=== PATIENT | male | born 1945 | race Caucasian/White ===

== ENCOUNTER 2020-09-12 16:52 | Emergency (ER) | payer MEDICARE, OTHER, SELFPAY ==
[2020-09-12 17:06] VITALS: BP 137/87; PULSE 82; RESP 16; TEMP 36.9
[2020-09-12 17:15] VITALS: O2SAT 98
--- NOTE | 2020-09-12 17:55 | ED.DENTAL ---
HPI - Dental/Oral General Chief complaint: Dental/Oral Stated complaint: Tooth Pain Time Seen by Provider: 09/12/20 17:48 Source: patient and RN notes reviewed Mode of arrival: ambulatory Limitations: no limitations History of Present Illness HPI Narrative: Patient presents today complaining of right upper dental pain since last night with facial swelling. Denies fever, shortness of breath, difficulty swallowing. He does not currently have a dentist. No recent antibiotic use. Currently rates pain 5/10 and has been taking Aleve and using peroxide without relief. MD Complaint: tooth pain Related Data Home Medications Medication Instructions Recorded Confirmed amlodipine 5 mg tablet 5 mg PO DAILY 01/23/19 09/10/20 aspirin 81 mg tablet,delayed 81 mg PO DAILY 01/23/19 09/10/20 release cholecalciferol (vitamin D3) 50 2,000 unit PO DAILY cap 01/23/19 09/10/20 mcg (2,000 unit) capsule lisinopril 40 mg tablet 40 mg PO DAILY 01/23/19 09/10/20 metoprolol tartrate 100 mg tablet 100 mg PO Q12H 01/23/19 09/10/20 atorvastatin 80 mg tablet 80 mg PO DAILY 02/18/19 09/10/20 furosemide [Lasix] 20 mg PO DAILY 09/12/20 09/12/20 nitroglycerin 0.4 mg SUBLINGUAL Q5-15M 09/12/20 09/12/20 Allergies Allergy/AdvReac Type Severity Reaction Status Date / Time No Known Allergies Allergy Verified 09/12/20 17:17 Review of Systems Review of Systems: Narrative: CONSTITUTIONAL: Denies body aches, fever, chills, or sweats. EYES: Denies visual changes, redness, or discharge. ENT: Denies rhinorrhea, congestion, sore throat, or otalgia.+ Right upper dental pain CARDIOVASCULAR: Denies chest pain, palpitations, or edema. RESPIRATORY: Denies cough or dyspnea. GASTROINTESTINAL: Denies abdominal pain, nausea, vomiting, or diarrhea. GENITOURINARY: Denies dysuria or hematuria. SKIN: Denies rash, itching, or wounds. MUSCULOSKELETAL: Denies back pain, joint pain, or myalgia. NEUROLOGIC: Denies headache, numbness, tingling, or weakness. PSYCH: Denies depression or anxiety. [facility] Past Medical History Medical History (Updated 09/12/20 @ 17:59 by Evelin Rojas, [employer], ) High cholesterol Hypertension Family History Family History Other Asthma Family history of cardiovascular disease Family history of liver disease Family history of malignant neoplasm of breast in first degree relative Social History Social History Smoking status: Never smoker Second hand tobacco smoke exposure: No Alcohol intake: current Gender identity (if verbalized by the patient): Male Comments At time of signature, I have reviewed and agree with nursing past medical, surgical, social and family history unless otherwise noted. Please see nursing chart for further information. There is no relevant family history pertinent to the presenting complaint Exam Narrative: Exam Narrative: GENERAL: Well-appearing, well-nourished, and in no acute distress. HEAD: Normocephalic, atraumatic. EYES: EOMI. No redness or drainage. Conjunctivae normal. ENT: Mucous membranes pink and moist. Throat normal. Uvula midline. Multiple missing teeth. Patient has pain in the right upper quadrant. Tooth #4 and 5 are painful with surrounding erythematous and edematous gumline. Mild swelling to the right upper jawline. NECK: Normal AROM. Supple. No lymphadenopathy. CHEST: No respiratory distress. Clear to auscultation. HEART: Regular rate and rhythm. No murmur appreciated. Normal peripheral pulses. EXTREMITIES: Normal range of motion. No edema. SKIN: Warm, dry, no rash. Capillary refill normal. Normal skin turgor. NEURO: No focal deficits. Alert and oriented x3. Gait steady. PSYCH: Normal affect. No signs of depression or anxiety. Course Vital Signs Vital signs: Vital Signs Temperature 98.4 F 09/12/20 17:06 Pulse Rate 82 09/12/20 17:06 Resp
== END 2020-09-12 18:02 | disposition home or self-care (01) ==
PROVIDERS: Emergency Provider Nurse Practitioner; PCP Physician Assistant
DX: K04.7 Periapical abscess without sinus (principal); E78.00 Pure hypercholesterolemia, unspecified; I10 Essential (primary) hypertension
CPT/HCPCS: 99213; G0463

== ENCOUNTER 2021-07-30 09:18 | Emergency (ER) | payer MEDICARE, OTHER, SELFPAY ==
--- NOTE | ~2021-07-30 | XR_ITS ---
XR abdomen/kub 1V DATE: 07/30/2021 09:48 INDICATION: Constipation TECHNIQUE: AP projection, 2 views COMPARISON: None FINDINGS: Sternal wire sutures are noted. Heart size is normal. The lower lung zones are clear. Nonspecific bowel gas pattern without evidence of obstruction. There is a moderate amount of fecal ma terial in the ascending colon, hepatic flexure and transverse colon. The psoas shadows are intact. No visceromegaly or significant abnormal calcification is noted. Mild dextro scoliosis of the lumbar spine. Multilevel degenerative disc disease of the lumbar spine. IMPRESSION: Nonspecific abdomen Reviewed, dictated and finalized at [facility]. Reviewed, dictated and finalized at [facility]. IMPRESSION: Nonspecific abdomen
[2021-07-30 09:21] VITALS: BP 145/105; PULSE 78; RESP 15; TEMP 35.9; O2SAT 99
[2021-07-30 09:35] VITALS: BP 157/82; PULSE 69; RESP 18; O2SAT 99
--- NOTE | 2021-07-30 11:20 | ED.ABDPAIN ---
HPI - Abdominal Pain General Chief Complaint: Abdominal Pain Stated Complaint: No BM, too much prune juice Time Seen by Provider: 07/30/21 09:31 History of Present Illness HPI narrative: Patient is a 75-year-old male who presents ER with abdominal cramping. Worsened since taking prune juice and attempt to have a bowel movement. Endorses constipation for several days despite 1 small bowel movement after taking some prune juice. No nausea or vomiting. No belching. No history of bowel obstruction or abdominal surgery. No fevers or chills or sweats. Related Data Home Medications Medication Instructions Recorded Confirmed amlodipine 5 mg tablet 5 mg PO DAILY 01/23/19 09/10/20 aspirin 81 mg tablet,delayed 81 mg PO DAILY 01/23/19 09/10/20 release cholecalciferol (vitamin D3) 50 2,000 unit PO DAILY cap 01/23/19 09/10/20 mcg (2,000 unit) capsule lisinopril 40 mg tablet 40 mg PO DAILY 01/23/19 09/10/20 metoprolol tartrate 100 mg tablet 100 mg PO Q12H 01/23/19 09/10/20 atorvastatin 80 mg tablet 80 mg PO DAILY 02/18/19 09/10/20 nitroglycerin 0.4 mg SUBLINGUAL Q5-15M 09/12/20 09/12/20 tamsulosin 0.4 mg PO DAILY 07/30/21 07/30/21 Allergies Allergy/AdvReac Type Severity Reaction Status Date / Time No Known Allergies Allergy Verified 07/30/21 09:29 Review of Systems Review of Systems: All systems reviewed & are unremarkable except as noted in HPI and below Constitutional: Constitutional: Denies chills, Denies fever(s) and Denies weakness Cardiovascular: Cardiovascular: Denies chest pain and Denies radiating jaw, neck or arm pain Gastrointestinal: Gastrointestinal: Reports abdominal pain, Reports bloating, Reports constipation, Denies nausea and Denies vomiting Genitourinary: Genitourinary: Denies dysuria and Denies urinary frequency [facility] Past Medical History Medical History (Updated 07/30/21 @ 11:22 by Vic Saavedra MD) High cholesterol Hypertension Family History Family History Other Asthma Family history of cardiovascular disease Family history of liver disease Family history of malignant neoplasm of breast in first degree relative Social History Social History Smoking status: Never smoker Second hand tobacco smoke exposure: No Alcohol intake: current Gender identity (if verbalized by the patient): Male Exam Narrative: GENERAL: Well-appearing, well-nourished, and in no acute distress. HEAD: Normocephalic, atraumatic. CHEST: Clear to auscultation. No respiratory distress. HEART: Regular rate and rhythm. Normal peripheral pulses. ABDOMEN: Soft, nontender, nondistended, normal active bowel sounds. EXTREMITIES: Normal range of motion. No edema. SKIN: Warm, dry, no rash. NEURO: Alert and oriented x3. PSYCH: Normal mood and affect. Course Course Emergency Course: Discharged with magnesium citrate and placed on daily MiraLAX. Vital Signs Vital signs: Vital Signs Temperature 96.6 F L 07/30/21 09:21 Pulse Rate 78 07/30/21 09:21 Respiratory Rate 15 07/30/21 09:21 Blood Pressure 145/105 H 07/30/21 09:21 Pulse Oximetry 99 07/30/21 09:21 Temperature 96.6 F L 07/30/21 09:21 Pulse Rate 69 07/30/21 09:35 Respiratory Rate 18 07/30/21 09:35 Blood Pressure 157/82 H 07/30/21 09:35 Pulse Oximetry 99 07/30/21 09:35 MDM - Abdominal Pain Imaging Data Radiologist's impression: ITS Impressions Abdomen X-Ray 07/30/21 09:57 IMPRESSION: Nonspecific abdomen Discharge Plan Discharge Clinical Impression: Constipation Patient Disposition: Home, Self-Care Condition: Stable Instructions: Constipation (ED) Additional Instructions: Return the ER if you cannot keep down food or water, you have severe abdominal pain, you have additional concerns. If you develop diarrhea discontinue the MiraLAX. Prescriptions: New
[2021-07-30] MEDS: MAGNESIUM CITRATE 300 ML BTL PO (11:38)
== END 2021-07-30 11:40 | disposition home or self-care (01) ==
PROVIDERS: Emergency Provider Emergency Medicine; PCP Physician Assistant
DX: K59.00 Constipation, unspecified (principal); Z79.82 Long term (current) use of aspirin; I10 Essential (primary) hypertension; E78.00 Pure hypercholesterolemia, unspecified
CPT/HCPCS: 74018; 99283; A9270

== ENCOUNTER 2021-08-04 11:26 | Inpatient (IN) | payer MEDICARE, OTHER, SELFPAY ==
[2021-08-04] VITALS (13 sets, daily range): BP systolic 118–159; BP diastolic 60–92; PULSE 70–86; RESP 18–20; TEMP 36.6–37.1; O2SAT 98–100; BMI 31.8
--- NOTE | ~2021-08-04 | CT_ITS ---
EXAMINATION: CT abdomen pelvis wo con DATE: 08/04/2021 14:55 INDICATION: Abdominal pain. Constipation. Inability to urinate. TECHNIQUE: Computed tomography (CT) of the abdomen and pelvis was performed without intravenous contr ast. Automated exposure control and iterative reconstruction technique were employed. The dose-length product was 622.54 mGy-cm. COMPARISON: None. FINDINGS: The visualized portions of the lung bases demonstrate mild atelectasis. No pleural effusion . The heart size is normal. No pericardial effusion. There is diffuse hepatic steatosis. The gallblad radhika, spleen, pancreas, and adrenal glands are normal. There is mild bilateral hydronephrosis and hydr oureter. There is no urolithiasis. The prostate is moderately enlarged. There is a Ruiz catheter in expected position. There is a left inguinal hernia containing fat. There is diverticulosis of the col on without evidence of diverticulitis. There are no dilated loops of bowel. The appendix is normal. T here are no pathologically enlarged lymph nodes. There is no free intraperitoneal fluid. There is sev ere lumbar spondylosis. IMPRESSION: 1. Mild bilateral hydronephrosis and hydroureter. 2. Moderately enlarged prostate. 3. Left inguinal hernia containing fat. 4. Diffuse hepatic steatosis. Reviewed, dictated and finalized at [facility].
--- NOTE | ~2021-08-04 | US_ITS ---
EXAMINATION: US renal BI DATE: 08/05/2021 13:34 INDICATION: Acute renal insufficiency. Urinary retention. TECHNIQUE: Multiple ultrasound grayscale images of the kidneys were obtained. COMPARISON: CT dated 08/04/2021 FINDINGS: The right kidney measures 12.8 x 5.1 x 6.5 cm. The left kidney measures 12.4 x 6.0 x 5.1 cm. The kidn eys demonstrate normal echogenicity. Prior mild bilateral hydronephrosis has resolved. No stones iden tified. The bladder is compressed around a Ruiz catheter which limits evaluation. Prostatomegaly.. IMPRESSION: 1. Normal kidneys without hydronephrosis. 2. Prostatomegaly. Reviewed, dictated and finalized at location A.
[2021-08-04 12:13] LABS: Basophils Percent Auto 0.4 % (0.2-1.2); Eosinophils Absolute Auto 0.1 K/mm3 (0-0.3); Hemoglobin 14.3 g/dL (14.0-18.0); Immature Granulocyte Absolute 0.08 K/mm3 (0.00-0.031); Immature Granulocyte Percent A 0.8 % (0-0.5); Lymphocytes Absolute Auto 1.41 K/mm3 (0.9-3.2); Mean Corpuscular HGB Conc 32.5 g/dl (32-36); Mean Corpuscular Hemoglobin 28.5 pg (26-34); Mean Corpuscular Volume 87.8 fl (80-100); Mean Platelet Volume 9.8 fl (7.4-10.4); Monocytes Absolute Auto 0.6 K/mm3 (0.1-0.6); Monocytes Percent Auto 6.7 % (2.6-8.5); Neutrophils Absolute Auto 7.2 K/mm3 (1.3-6.7); Neutrophils Percent Auto 76.1 % (45.5-73.1); Platelet Count Result 326 k/mm3 (150-375); Red Blood Count 5.01 M/mm3 (4.6-6.20); Red Cell Distribution Width 13.8 % (11.5-14.5); White Blood Count 9.4 K/mm3 (4.5-10.0)
[2021-08-04 12:15] LABS: Alanine Aminotransferase 42 U/L (6-50); Albumin Level 3.9 g/dL (3.5-5.1); Alkaline Phosphatase 117 U/L (38-126); Anion Gap 20 mmol/L (8-16); Aspartate Amino Transferase 18 U/L (17-59); Bilirubin,Total 0.5 mg/dL (0.2-1.3); Blood Urea Nitrogen 113 mg/dL (9-20); Calcium 7.5 mg/dL (8.4-10.2); Carbon Dioxide 10 mmol/L (22-30); Chloride 96 mmol/L (98-107); Glucose 88 mg/dL (65-110); Lipase 47 U/L (23-300); Potassium 7.9 mmol/L (3.4-5.0); Sodium 126 mmol/L (137-145)
[2021-08-04 12:17] LABS: Estimated CRCL calculation 3 ml/min; Estimated Glomerular Filt Rate 3
--- NOTE | 2021-08-04 12:17 | ECG_ITS ---
Measurements Intervals [place] Rate: 69 P: 71 OR: 236 QRS: 169 QRSD: 158 T: -10 QT: 445 QTc: 478 Interpretive Statements SINUS RHYTHM WITH FIRST DEGREE AV BLOCK RIGHT BUNDLE BRANCH BLOCK LEFT POSTERIOR FASCICULAR BLOCK BORDERLINE ST-T WAVE ABNORMALITY- INF/LAT LEADS ABNORMAL ECG Electronically Signed On 08-04-2021 13:18:32 CDT by Hardy Simpson D.O.
--- NOTE | 2021-08-04 13:18 | PC.NURSE ---
Note pt has over 1000cc in bladder per scanner. Preparing to straight cath patient.
--- NOTE | 2021-08-04 13:40 | PC.NURSE ---
Attempt to straight cath patient, per lamination technician unable to complete, #15F caude to bedside and pt straight cathed. Immediate return cloudy pink urine with some clots in it. Attached to paulino bag and clamped after 1000cc out. Pt c/o nausea.
[2021-08-04 13:53] LABS: Add Urine Microscopic? YES; Appearance Urine Slightly Cloudy (Clear); Bilirubin Urine Negative (Negative); Blood Urine 3+ (Negative); Color Urine Yellow (Yellow); Glucose Urine UA Negative (Negative); Ketones Urine Negative (Negative); Leukocyte Esterase Ur Negative LEU/UL (Negative); Nitrate Urine Negative (Negative); Protein Urine Negative (Negative); Urobilinogen Urine 0.2 mg/dL (<2.0); pH Urine 5.5 (5.0-9.0)
[2021-08-04] MEDS: SODIUM CHLORIDE 0.9% IV 1,000 ML 999 ML IV CONT (13:55)
[2021-08-04] MEDS: CALCIUM GLUCONATE 1,000 MG/10 ML VIAL 1000 MG IV PUSH (13:57)
[2021-08-04] MEDS: ALBUTEROL SULFATE NEB 2.5 MG/3 ML INH 5 MG INHALATION (14:00)
[2021-08-04 14:01] LABS: Mucus Urine Rare /lpf; RBC Urine >75 /hpf (0-2); WBC Urine 0-3 /hpf
[2021-08-04] MEDS: DEXTROSE 50% 25 GM/50 ML SYRINGE IV PUSH (14:05)
[2021-08-04] MEDS: INSULIN HUMAN REGULAR (*BKC) 100 UNITS/ML 10 UNITS IV PUSH (14:07)
[2021-08-04] MEDS: SODIUM BICARBONATE 8.4% 50 MEQ/50 ML SYRINGE IV PUSH (14:08)
--- NOTE | 2021-08-04 14:13 | ED.ABDPAIN ---
HPI - Abdominal Pain General Chief Complaint: Abdominal Pain Stated Complaint: trouble urinating, constipation Time Seen by Provider: 08/04/21 13:00 Source: patient Mode of arrival: ambulatory Limitations: no limitations History of Present Illness HPI narrative: This is a 75 year old male with history of hypertension who presents for evaluation of inability to urinate and abdominal pain. He states he has been having right lower abdominal pain since Saturday. He states his pain was intermittent and thought to be due to constipation. He states he has not had bowel movement in 1 week. Patient has not been able to urinary since his ER visit on Saturday. He has been having nausea and dry heaves. He denies fever or chills. He denies history urinary retention in the past. Related Data Home Medications Medication Instructions Recorded Confirmed amlodipine 5 mg tablet 5 mg PO DAILY 01/23/19 08/04/21 aspirin 81 mg tablet,delayed 81 mg PO DAILY 01/23/19 08/04/21 release cholecalciferol (vitamin D3) 50 2,000 unit PO DAILY cap 01/23/19 08/04/21 mcg (2,000 unit) capsule lisinopril 40 mg tablet 40 mg PO DAILY 01/23/19 08/04/21 metoprolol tartrate 100 mg tablet 100 mg PO Q12H 01/23/19 08/04/21 atorvastatin 80 mg tablet 80 mg PO DAILY 02/18/19 08/04/21 Allergies Allergy/AdvReac Type Severity Reaction Status Date / Time No Known Allergies Allergy Verified 08/04/21 13:07 Review of Systems Review of Systems: All systems reviewed & are unremarkable except as noted in HPI and below Constitutional: Constitutional: Denies chills, Reports fatigue and Denies fever(s) Cardiovascular: Cardiovascular: Denies chest pain Respiratory: Respiratory: Denies cough and Denies dyspnea Gastrointestinal: Gastrointestinal: Reports abdominal pain, Reports constipation, Denies diarrhea, Reports nausea and Denies vomiting Genitourinary: Genitourinary: Denies hematuria, Reports oliguria and Denies dysuria [facility] Past Medical History Medical History Benign prostatic hyperplasia Coronary artery disease Hyperlipidemia Hypertension Surgical History Surgical History History of coronary artery bypass graft (2002) Family History Family History Other Asthma Family history of cardiovascular disease Family history of liver disease Family history of malignant neoplasm of breast in first degree relative Social History Social History Social History: Surrogate decision-maker: CODE STATUS: Full code. Smoking status: Former smoker Second hand tobacco smoke exposure: No Alcohol intake: never Substance use: never Spiritual care concerns: No Exam Const: General: alert Orientation/consciousness: patient oriented x3 Eyes: EOM: EOMs intact bilaterally Chest: Chest palpation & inspection: normal inspection of the chest Resp: Effort & Inspection: normal respiratory effort and no retractions Auscultation: clear to auscultation bilaterally Cardio: Rate: regular rate Rhythm: regular rhythm Heart sounds: no murmurs GI: GI Palp: Yes Soft to palpation, No Tenderness to palpation present (GI) and No Guarding due to palpation present (GI) Auscultation: normal bowel sounds : General: Yes no CVA tenderness Skin: General skin exam: normal color Rashes: no rashes Neuro: General: patient oriented x3, moves all extremities and CN's II-XI intact bilaterally Psych: Mental Status: mental status grossly normal Affect: normal affect Course Reevaluation(s) Reevaluation #1: Patient presented with abdominal pain and urinary retention. He found to have FORTUNATO with hyperkalemia due to urinary obstruction. He was given IVF, insulin, bicarb, calcium and kayexalate for his hyperkalemia. Dr. Peterson with urolog
[2021-08-04] MEDS: SODIUM POLYSTYRENE SULFONONATE 15 GM/60 ML BTL 30 GM PO (14:36)
[2021-08-04 15:13] LABS: SARS-CoV-2 RNA PCR Negative
--- NOTE | 2021-08-04 15:15 | PM.IMHP ---
H&P: HPI History of Present Illness Date/Time: 08/04/21 15:15 Chief Complaint: Unable to urinate. Narrative: This is a pleasant 75-year-old male with benign prostatic hyperplasia, coronary artery disease, hypertension, and hyperlipidemia who presented to the ER from home with reports of not being able to urinate since Saturday. Over the last 6 months or so he has noticed some difficulties urinating, more specifically he has had problems starting his stream and he has noticed that his stream is less forceful. The symptoms have been much worse over the past 2 weeks to the point where he reportedly has not urinated much in the last 7 days. In fact he was seen in the emergency department over the weekend for what he thought was constipation at which time he was started on MiraLax after a KUB showed no significant constipation. The last several days he has noticed that his abdomen has become increasingly distended with nausea and weakness. Vital signs were stable on arrival to the ER today. Labs were remarkable for a BUN and creatinine of 113 and 17.40 respectively, sodium 126, potassium 7.9, chloride 96, carbon dioxide 10, anion gap 20. A Ruiz catheter was placed easily and according to the chart he has had 8375 mL out at the time of this dictation. His chemistries were repeated this evening with normalization of his potassium and improvement in his BUN and creatinine. At the time my evaluation the patient has no complaints and is feeling better. He was previously on tamsulosin but he stop taking that 6 months or so ago ?because it was not doing anything.? Review of Systems Review of Systems: Twelve systems were reviewed. No syncope or near syncope. No headache. No confusion. No balance issues. No recent cold or flu symptoms. No chest pain or shortness of breath. No vomiting. Except as documented, all other systems were reviewed and are negative. [facility] Past Medical History Medical History Benign prostatic hyperplasia Coronary artery disease Hyperlipidemia Hypertension Surgical History Surgical History (Updated 08/04/21 @ 22:19 by Flores Baez PA-C) History of bilateral cataract extraction History of coronary artery bypass graft x 2 (2002) Family History Family History Other Asthma Family history of cardiovascular disease Family history of liver disease Family history of malignant neoplasm of breast in first degree relative Social History Social History (Updated 08/04/21 @ 22:19 by Flores Baez PA-C) Social History: Surrogate decision-maker: Nikolai Saldivar (son) or Nazia Paul (daughter). CODE STATUS: Full code. Smoking status: Former smoker Second hand tobacco smoke exposure: No Alcohol intake: never Substance use: never Living arrangements: with family Spiritual care concerns: No Meds Home Medications and Allergies Home Medications Medication Instructions Recorded Confirmed Type amlodipine 5 mg tablet 5 mg PO DAILY 01/23/19 08/04/21 History aspirin 81 mg tablet,delayed 81 mg PO DAILY 01/23/19 08/04/21 History release cholecalciferol (vitamin D3) 50 2,000 unit PO DAILY cap 01/23/19 08/04/21 History mcg (2,000 unit) capsule lisinopril 40 mg tablet 40 mg PO DAILY 01/23/19 08/04/21 History metoprolol tartrate 100 mg tablet 100 mg PO Q12H 01/23/19 08/04/21 History atorvastatin 80 mg tablet 80 mg PO DAILY 02/18/19 08/04/21 History Allergies Allergy/AdvReac Type Severity Reaction Status Date / Time No Known Allergies Allergy Verified 08/04/21 13:07 Vital Signs Vital Signs - 24 hr 08/04/21 11:44 08/04/21 13:00 Temperature 98.2 F Pulse Rate 70 Respiratory Rate 18 18 Blood Pressure 141/67 H 141/71 H Pulse Oximetry 99 99 Exam Narrative: General: Well-developed male sitting in bed in no distress. He is in good spirits. Nontoxic in appearance. Weight: 8
--- NOTE | 2021-08-04 15:37 | PC.NURSE ---
food tray ordered
[2021-08-04 15:42] LABS: Glucose Point of Care 73 mg/dl (65-105)
--- NOTE | 2021-08-04 15:51 | PC.NURSE ---
Pt c/o pain at uretheral meatus and also c/o need to defecate. Ambulatory to bathroom for stool.
--- NOTE | 2021-08-04 16:11 | PC.NURSE ---
Pt to the bathroom to defecate a total of three times. Note blood at urinary meatus. Dr. Woodward at bedside speaking with patient. Pt reattached to ekg monitor tech. RT at bedside for gases. Food tray given to patient.
--- NOTE | 2021-08-04 16:13 | WPDURCON ---
Assessment and Plan Assessment and plan (1) Hyperkalemia: Code(s): E87.5 - Hyperkalemia Status: Acute (2) Acute kidney failure: Code(s): N17.9 - Acute kidney failure, unspecified Status: Acute (3) Urinary retention: Code(s): R33.9 - Retention of urine, unspecified Status: Acute Assessment and Plan: Urinary retention and acute kidney injury, at least in part, due to bladder outlet obstruction secondary to BPH Will start combination therapy for BPH ( tamsulosin and finasteride). Once a voiding trial as arranged he will need careful follow-up to make sure retention and renal failure as and recurring Urology Consult Note HPI Date Seen: 08/04/21 Primary Care Provider: Jose G Contreras PA-C Consult Narrative Narrative: Kwaku Saldivar is a 75 year old male, which never been seen in our office or by any other urologists, who presents to the ER with a one-week history of reports of inability to urinate and constipation. His daughter claims she has been after move for a week to present for evaluation because of his your complete lack of urination. The patient does reporting a six-month history of outlet obstructive voiding sensation and a sense of incomplete emptying. He has not ever saw to care for BPH or other urological issues. Seen in the ER Ruiz catheter was placed with ease and passed over 1 L of urine was drained. This was done prior to obtaining upper tract imaging. He was found have serum creatinine of 17 and potassium of 7.9. Review of Systems Cardiovascular: Cardiovascular: Denies chest pain, Denies lightheadedness, Denies palpitations and Denies dyspnea Respiratory: Respiratory: Denies dyspnea Gastrointestinal: Gastrointestinal: Denies diarrhea, Denies nausea and Denies vomiting Genitourinary: Genitourinary: Denies hematuria and Denies dysuria Endocrine: Endocrine: Denies palpitations PMF Past Medical History Medical History Benign prostatic hyperplasia Coronary artery disease Hyperlipidemia Hypertension Surgical History Surgical History History of coronary artery bypass graft (2002) Family History Family History Other Asthma Family history of cardiovascular disease Family history of liver disease Family history of malignant neoplasm of breast in first degree relative Social History Social History Social History: Surrogate decision-maker: CODE STATUS: Full code. Smoking status: Former smoker Second hand tobacco smoke exposure: No Alcohol intake: current Meds Home Medications and Allergies Home Medications Medication Instructions Recorded Confirmed Type amlodipine 5 mg tablet 5 mg PO DAILY 01/23/19 09/10/20 History aspirin 81 mg tablet,delayed 81 mg PO DAILY 01/23/19 09/10/20 History release cholecalciferol (vitamin D3) 50 2,000 unit PO DAILY cap 01/23/19 09/10/20 History mcg (2,000 unit) capsule lisinopril 40 mg tablet 40 mg PO DAILY 01/23/19 09/10/20 History metoprolol tartrate 100 mg tablet 100 mg PO Q12H 01/23/19 09/10/20 History atorvastatin 80 mg tablet 80 mg PO DAILY 02/18/19 09/10/20 History nitroglycerin 0.4 mg SUBLINGUAL Q5-15M 09/12/20 09/12/20 History polyethylene glycol 3350 [Miralax] 17 g PO DAILY #14 ea 07/30/21 Rx tamsulosin 0.4 mg PO DAILY 07/30/21 07/30/21 History Allergies Allergy/AdvReac Type Severity Reaction Status Date / Time No Known Allergies Allergy Verified 08/04/21 13:07 Vital Signs Vital Signs - 24 hr 08/04/21 11:44 08/04/21 13:00 08/04/21 13:17 Temperature 98.2 F Pulse Rate 70 73 Respiratory Rate 18 18 Blood Pressure 141/67 H 141/71 H 144/73 H Pulse Oximetry 99 99 99 08/04/21 13:32 08/04/21 14:18 08/04/21 14:41 Temperature Pulse Rate 85 84
[2021-08-04 16:16] LABS: Alveolar/Arterial O2 Gradient 22.1 mmHg; Base Excess ABG -10.8 mEq/l (+/-2.0); Carboxyhemoglobin 0.5 % THb (0-2.0); Fractional Inspired Oxygen 21 %; HCO3 ABG 12.6 mEq/l (22.0-26.0); Methemoglobin ABG 0.4 %THb (0-1.5); Oxygen Content ABG 20.9 %vol (16.0-22.0); Oxygen Saturation ABG 97.4 % (95.0-100.0); PO2 ABG 99.5 mmHg (80.0-100.0); PO2 FiO2 Ratio Arterial Blood 4.74 %; Reduced Hemoglobin 3.1 %THb (0-5.0); Total Hemoglobin 15.4 g/dL (12.0-18.0); pH ABG 7.348 (7.350-7.450)
[2021-08-04 16:17] LABS: Modified Allen's Test Pass; PCO2 ABG 23.5 mmHg (35.0-45.0); Site Drawn RIGHT RADIAL
[2021-08-04 16:18] LABS: Device ROOM AIR
[2021-08-04 17:09] LABS: Anion Gap 18 mmol/L (8-16); Blood Urea Nitrogen 99 mg/dL (9-20); Calcium 8.1 mg/dL (8.4-10.2); Carbon Dioxide 15 mmol/L (22-30); Chloride 106 mmol/L (98-107); Estimated CRCL calculation 5 ml/min; Estimated Glomerular Filt Rate 4; Glucose 89 mg/dL (65-110); Sodium 139 mmol/L (137-145)
--- NOTE | 2021-08-04 17:13 | PC.NURSE ---
Pt up bathroom to defecate again.
[2021-08-04] MEDS: LIDOCAINE HCL 2% GEL UROJET 10 ML PKG (17:27)
--- NOTE | 2021-08-04 17:57 | ADMGEN ---
This patient, Kwaku Saldivar, was admitted to Intensive Care Unit-9. Patient/family oriented to hospital policies and general routines including ID bracelet, bed and alarms, visiting hours, pain management, procedures, bathroom and other care routines, personal items, smoking policy, room service/diet, and visiting hours. Information on how to activate the Rapid Response Team has been discussed. Patient/Family are encouraged to report perceived risks to care and to ask questions if they do not understand what they are told or what they should do.
[2021-08-04] MEDS: SODIUM CHLORIDE 0.9% IV 1,000 ML 125 ML IV CONT (18:17)
--- NOTE | 2021-08-04 18:18 | PC.NURSE ---
Per GREY PERCHER, patient has had 4500 ml out of urine total since catheter placed.
--- NOTE | 2021-08-04 19:42 | PC.NURSE ---
Spoke with Flores LU and she states patient can be downgraded to IMU.
[2021-08-04] MEDS: TAMSULOSIN HCL 0.4 MG CAPSULE PO (20:11)
[2021-08-04 20:45] LABS: Anion Gap 11 mmol/L (8-16); Blood Urea Nitrogen 83 mg/dL (9-20); Calcium 7.6 mg/dL (8.4-10.2); Carbon Dioxide 19 mmol/L (22-30); Chloride 106 mmol/L (98-107); Estimated CRCL calculation 8 ml/min; Estimated Glomerular Filt Rate 7; Glucose 132 mg/dL (65-110); Potassium 4.8 mmol/L (3.4-5.0); Sodium 136 mmol/L (137-145)
[2021-08-04 21:11] LABS: Glucose Point of Care 149 mg/dl (65-105)
--- NOTE | 2021-08-04 21:25 | PC.NURSE ---
This patient, Kwaku Saldivar, was transferred to [ [id number]] on 08/04/21 at 2125. Personal belongings sent with patient. Report given to [ Ada MARIANO]. Appropriate documentation sent with patient.
--- NOTE | 2021-08-04 21:26 | PC.NURSE ---
This patient, Kwaku Saldivar, was received from ICU 9 on 08/04/21 at 2124. Patient oriented to unit policies and routines
[2021-08-04] MEDS: METOPROLOL TARTRATE 50 MG TAB 100 MG PO (23:02)
[2021-08-05] VITALS (13 sets, daily range): BP systolic 147–162; BP diastolic 58–68; PULSE 67–92; RESP 16–20; TEMP 36.6–37.2; O2SAT 96–100
[2021-08-05] MEDS: SODIUM CHLORIDE 0.9% IV 1,000 ML 125 ML IV CONT ×3 (02:13→20:54)
[2021-08-05 04:52] LABS: Basophils Percent Auto 0.5 % (0.2-1.2); Eosinophils Absolute Auto 0.2 K/mm3 (0-0.3); Hematocrit 39.1 % (42.0-52.0); Hemoglobin 13.4 g/dL (14.0-18.0); Immature Granulocyte Absolute 0.04 K/mm3 (0.00-0.031); Immature Granulocyte Percent A 0.5 % (0-0.5); Lymphocytes Absolute Auto 1.57 K/mm3 (0.9-3.2); Lymphocytes Percent Auto 20.7 % (18.3-44.2); Mean Corpuscular HGB Conc 34.3 g/dl (32-36); Mean Corpuscular Volume 84.6 fl (80-100); Mean Platelet Volume 9.1 fl (7.4-10.4); Monocytes Absolute Auto 0.8 K/mm3 (0.1-0.6); Monocytes Percent Auto 10.9 % (2.6-8.5); Neutrophils Percent Auto 65.4 % (45.5-73.1); Platelet Count Result 289 k/mm3 (150-375); Red Blood Count 4.62 M/mm3 (4.6-6.20); Red Cell Distribution Width 13.9 % (11.5-14.5); White Blood Count 7.6 K/mm3 (4.5-10.0)
[2021-08-05 05:13] LABS: Alanine Aminotransferase 36 U/L (6-50); Albumin Level 3.3 g/dL (3.5-5.1); Alkaline Phosphatase 110 U/L (38-126); Anion Gap 6 mmol/L (8-16); Aspartate Amino Transferase 19 U/L (17-59); Bilirubin,Total 0.5 mg/dL (0.2-1.3); Blood Urea Nitrogen 46 mg/dL (9-20); Calcium 7.7 mg/dL (8.4-10.2); Carbon Dioxide 20 mmol/L (22-30); Chloride 110 mmol/L (98-107); Estimated CRCL calculation 20 ml/min; Estimated Glomerular Filt Rate 20; Glucose 101 mg/dL (65-110); Magnesium 2.3 mg/dL (1.6-2.3); Phosphorus 3.6 mg/dL (2.5-4.5); Potassium 5.2 mmol/L (3.4-5.0); Sodium 136 mmol/L (137-145)
[2021-08-05] MEDS: CHOLECALCIFEROL 1,000 UNITS TABLET 2000 UNITS PO (08:15)
[2021-08-05] MEDS: amLODIPine BESYLATE 5 MG TABLET PO (08:15)
[2021-08-05] MEDS: METOPROLOL TARTRATE 50 MG TAB 100 MG PO ×2 (08:15→20:54)
[2021-08-05] MEDS: ATORVASTATIN 40 MG TABLET 80 MG PO (08:15)
[2021-08-05] MEDS: FINASTERIDE 5 MG TABLET PO (08:41)
[2021-08-05 09:15] LABS: Glucose Point of Care 97 mg/dl (65-105)
--- NOTE | 2021-08-05 10:35 | WPDUROPN2 ---
Progress Note: A&P Assessment and Plan (1) Obstruction, uropathy: Code(s): N13.9 - Obstructive and reflux uropathy, unspecified Status: Acute (2) Benign prostatic hyperplasia: Code(s): N40.0 - Benign prostatic hyperplasia without lower urinary tract symptoms Status: Acute (3) Acute hyperkalemia: Code(s): E87.5 - Hyperkalemia Status: Acute Additional Plan 1. Maintain Ruiz 2. Drink to thirst, ensure patient has access to water. 3. Patient understands he will require further outpatient work up in the office for bladder outlet obstruction surgery vs. need for chronic intermittent catheterization. Subjective Subjective Date/Time Seen: 08/05/21 10:35 Interval history: NAEO, electrolytes improving, patient understands need for catheter, drinking water to thirst. Exam Const: General: cooperative, healthy appearing, comfortable and no acute distress Chest: Chest palpation & inspection: normal inspection of the chest Resp: Effort & Inspection: normal respiratory effort, able to speak in complete sentences, no audible wheezes and no cough GI: Inspection: normal to inspection GI Palp: No abdominal tenderness Urinary Catheter: Urinary Catheter: patent and draining and urine clear Neuro: General: oriented to person, oriented to place, oriented to time and patient oriented x3 Psych: Appearance: grossly normal and well kempt Mental Status: mental status grossly normal Speech and movement: Normal speech and movement present Objective Data Vital Signs Vital Signs: Vital Signs - 24 hr 08/04/21 11:44 08/04/21 13:00 08/04/21 13:17 Temperature 98.2 F Pulse Rate 70 73 Respiratory Rate 18 18 Blood Pressure 141/67 H 141/71 H 144/73 H Pulse Oximetry 99 99 99 08/04/21 13:32 08/04/21 14:18 08/04/21 14:41 Temperature Pulse Rate 85 84 82 Respiratory Rate Blood Pressure 159/92 H Pulse Oximetry 99 100 100 08/04/21 15:43 08/04/21 18:00 08/04/21 20:00 Temperature 97.8 F 98 F Pulse Rate 77 77 Respiratory Rate 18 18 Blood Pressure 118/66 138/69 Pulse Oximetry 98 98 100 08/04/21 21:32 08/04/21 22:00 08/04/21 23:02 Temperature 97.9 F Pulse Rate 86 86 78 Respiratory Rate 20 Blood Pressure 149/60 H Pulse Oximetry 100 98 08/04/21 23:28 08/05/21 00:00 08/05/21 02:00 Temperature 98.7 F Pulse Rate 72 74 80 Respiratory Rate 20 Blood Pressure 147/61 H Pulse Oximetry 98 100 08/05/21 03:56 08/05/21 04:00 08/05/21 06:00 Temperature 97.8 F Pulse Rate 79 74 67 Respiratory Rate 20 Blood Pressure 147/58 H Pulse Oximetry 98 98 08/05/21 08:00 08/05/21 10:00 Temperature 98.6 F Pulse Rate 71 92 Respiratory Rate 18 Blood Pressure 150/60 H Pulse Oximetry 97 Intake/Output Intake/Output: Intake & Output 08/02/21 08/03/21 08/04/21 08/05/21 23:59 23:59 23:59 23:59 Intake Total 1290 1480 Output Total 8312 5028 Yixgalr -7927 -4338 Meds/Results Medications: Active Medications Generic Name Dose Route Start Last Admin Trade Name Freq PRN Reason Stop Dose Admin Amlodipine Besylate 5 mg 08/05/21 09:00 08/05/21 08:15 Amlodipine Besylate 5 Mg Tablet PO 5 mg DAILY OLENA Administration Atorvastatin Calcium 80 mg 08/05/21 09:00 08/05/21 08:15 Atorvastatin 40 Mg Tablet PO 80 mg DAILY OLENA Administration Finasteride 5 mg 08/05/21 09:00 08/05/21 08:41 Finasteride 5 Mg Tablet PO 5 mg QAM OLENA Administration Acetaminophen 1,000 mg in 100 mls @ 400 mls/hr 08/04/21 15:18 Ofirmev 1,000 Mg Ivpb IVPB 08/05/21 15:17 Q6H PRN Mild Pain (1-3) or Fever Sodium Chloride 1,000 mls @ 125 mls/hr 08/04/21 15:20 08/05/21 02:13 Normal Saline Iv IV CONT 125 mls/hr .Q8H OLENA Administration Metoprolol Tartrate 100 mg 08/04/21 22:35 08/05/21 08:15 Metoprolol Tartrate 50 Mg Tab PO 100 mg Q12HR OLENA Administration Ondansetron HCl 4 mg 08/04/21 15:18 Ondansetron Inj 4 Mg/2 Ml Vi
--- NOTE | 2021-08-05 11:46 | PM.CNNEP ---
Assessment and Plan Additional Plan 1. Kwaku has acute kidney injury. His BUN was 113 and his creatinine was 17.4. He had symptoms of BPH and then just yesterday symptoms of retention. He also had symptoms of uremia with his nausea. Ruiz catheter was placed knees had a tremendous amount of urine output and his creatinine has plummeted to its current level of 3.1. Most likely this is urinary retention and obstructive nephropathy. We do not have a baseline creatinine on the chart. We will see how much better the creatinine gets. It sounds like all the symptoms are somewhat acute so hopefully it will come down to a normal creatinine at baseline. 2. The patient has hyperkalemia. It was 7.9 on admission and he received Lokelma. Relief of the obstruction also has help the potassium. Today the potassium is 5.2. I will repeat a potassium this afternoon. 3. The patient has a low bicarbonate. His anion gap is normal. This is most likely due to the renal failure. Will repeat this tomorrow. 4. Sodium level is a little bit low. This is also most likely due to the renal failure. Will follow this along. 5. The patient has anemia. Hemoglobin is only mildly low. 6. Hypertension his blood pressure has been borderline high. We will see how it does with fluid removal from the relief of the obstruction. 7. Patient has BPH. He is on tamsulosin and Urology is following. History of Present Illness Reason for Consult Consult date: 08/05/21 Chief Complaint Chief complaint: Obstructive Uropathy, Acute Kidney Failure w/Hyper History of Present Illness Narrative: Kwaku is a very pleasant 75-year-old gentleman who has multiple medical problems including BPH, coronary disease status post bypass a few years ago, hypertension, hyperlipidemia. The patient was generally having problems with his prostate for the last few months. He has gotten up several times at night and each time he gets up he has to push to make urine. He did not mention any of this to his primary care doctor. He said he has not been sleeping well because of the frequent urinating but did not mention this either. He says in the last few days the urination has become more difficult and on the day of admission he was unable to urinate at all. He noted that his abdomen was quite distended as well. He developed some nausea lately. He came to the emergency room. He was found to have very high BUN creatinine and potassium. A Ruiz catheter was placed and he had a L of urine almost immediately and has had lots of urine output since then. Intake/output mentions 11L or more. Patient has not had any fevers or chills. He has not had any cold symptoms. He did not take any cold preparations. Is not on any new medications. He used to take a prostate medication over the counter but stopped that because it was not doing him any good. His blood pressure has been okay. He has not had any chest pain or shortness of breath. Review of Systems Constitutional: Constitutional: Reports no additional constitutional complaints Eyes: Eyes: Reports no additional eye complaints ENT: Reports system reviewed and no additional complaints, except as documented Cardiovascular: Cardiovascular: Reports no additional cardiovascular complaints Respiratory: Respiratory: Reports no additional respiratory complaints Gastrointestinal: Gastrointestinal: Reports no additional gastrointestinal complaints Genitourinary: Genitourinary: Reports no additional male genitourinary complaints Musculoskeletal: Musculoskeletal: Reports no additional musculoskeletal complaints Integumentary/Breasts: Skin/Breast: Reports system reviewed and no additional complaints, except as docu Neurologic: Reports system reviewed and no additional complaints, except as documented Psychiatric: Psychiatric: Reports no additional psychiatric complaints Endocrine: Endocrine: Reports no additional endocrine complaints [facility]
[2021-08-05 13:24] LABS: Glucose Point of Care 163 mg/dl (65-105)
[2021-08-05 16:48] LABS: Potassium 5.2 mmol/L (3.4-5.0)
[2021-08-05] MEDS: SODIUM ZIRCONIUM CYCLOSILICATE 10 GM POWD.PACK 5 GM PO (17:49)
--- NOTE | 2021-08-05 17:54 | PM.IMPN ---
Progress Note: A&P Assessment and Plan (1) Acute kidney failure: Code(s): N17.9 - Acute kidney failure, unspecified Status: Acute Assessment and Plan: Presumably due to urinary retention from bladder outlet obstruction; he does not appear dehydrated. He has not had labs done at this facility for several years but his creatinine was noted to be normal in 2019. Records requested from the [place] for comparison. Renal ultrasound has been ordered and is pending. Creatinine is already improving with Ruiz catheter placement. 08/05/2021 Interval history: patient with a urinary retention and presented emergency department with BUN and creatinine of 113 and 17.40 respectively, sodium 126, potassium 7.9, Ruiz was placed and 1 L of urine was drained was seen by urologist started the patient on Flomax and finasteride continued Ruiz, continue to have urine output, and has BUN and creatinine is improving and today BUN is 46 and creatinine is 3.1 compared to BUN of 113 and serum creatinine of 17.4, patient states is feeling much better denies any abdominal pain nausea or vomiting fever or chills, continue present management and reassess tomorrow further recommendation to follow. (2) Urinary retention: Code(s): R33.9 - Retention of urine, unspecified Status: Acute Assessment and Plan: Ruiz catheter yielded over 1000 mL upon initial insertion. Started on combination therapy with tamsulosin and finasteride per Dr. Woodward. (3) Hyperkalemia: Code(s): E87.5 - Hyperkalemia Status: Acute Assessment and Plan: Secondary to acute kidney failure. Potassium has normalized with appropriate treatment. (4) Hypertension: Code(s): I10 - Essential (primary) hypertension Status: Acute Assessment and Plan: Blood pressures were reviewed and they are stable. Monitor closely as lisinopril is on hold given acute kidney injury. (5) Benign prostatic hyperplasia: Code(s): N40.0 - Benign prostatic hyperplasia without lower urinary tract symptoms Status: Acute Assessment and Plan: Starting on combination therapy per Dr. Woodward as detailed above. (6) Acute hyperkalemia: Code(s): E87.5 - Hyperkalemia Status: Acute Subjective Date/time seen: 08/05/21 17:54 Chief Complaint: Unable to urinate. Narrative: This is a pleasant 75-year-old male with benign prostatic hyperplasia, coronary artery disease, hypertension, and hyperlipidemia who presented to the ER from home with reports of not being able to urinate since Saturday. Over the last 6 months or so he has noticed some difficulties urinating, more specifically he has had problems starting his stream and he has noticed that his stream is less forceful. The symptoms have been much worse over the past 2 weeks to the point where he reportedly has not urinated much in the last 7 days. In fact he was seen in the emergency department over the weekend for what he thought was constipation at which time he was started on MiraLax after a KUB showed no significant constipation. The last several days he has noticed that his abdomen has become increasingly distended with nausea and weakness. Vital signs were stable on arrival to the ER today. Labs were remarkable for a BUN and creatinine of 113 and 17.40 respectively, sodium 126, potassium 7.9, chloride 96, carbon dioxide 10, anion gap 20. A Ruiz catheter was placed easily and according to the chart he has had 8375 mL out at the time of this dictation. His chemistries were repeated this evening with normalization of his potassium and improvement in his BUN and creatinine. At the time my evaluation the patient has no complaints and is feeling better. He was previously on tamsulosin but he stop taking that 6 months or so ago ?because it was not doing anything.? 08/05/2021 Interval history: patient with a urinary retention and presented emergency department with BUN and creatinine of 113
[2021-08-05 18:09] LABS: Glucose Point of Care 91 mg/dl (65-105)
[2021-08-05] MEDS: TAMSULOSIN HCL 0.4 MG CAPSULE PO (20:53)
[2021-08-06] VITALS: BP 164/82; PULSE 72; PULSE 76; RESP 18; TEMP 36.3; O2SAT 97
[2021-08-06 04:00] VITALS: PULSE 73
[2021-08-06 05:17] VITALS: BP 135/54; PULSE 75; RESP 18; TEMP 36.8; O2SAT 97
[2021-08-06 06:12] LABS: Hematocrit 40.9 % (42.0-52.0); Hemoglobin 12.9 g/dL (14.0-18.0); Mean Corpuscular HGB Conc 31.5 g/dl (32-36); Mean Corpuscular Hemoglobin 28.2 pg (26-34); Mean Corpuscular Volume 89.5 fl (80-100); Mean Platelet Volume 9.2 fl (7.4-10.4); Platelet Count Result 248 k/mm3 (150-375); Red Blood Count 4.57 M/mm3 (4.6-6.20); Red Cell Distribution Width 14.1 % (11.5-14.5); White Blood Count 8.5 K/mm3 (4.5-10.0)
[2021-08-06 06:21] LABS: Hemoglobin A1C 6.2 % (<5.7)
[2021-08-06 06:30] LABS: Albumin Level 2.9 g/dL (3.5-5.1); Anion Gap 4 mmol/L (8-16); Blood Urea Nitrogen 14 mg/dL (9-20); Calcium 7.4 mg/dL (8.4-10.2); Carbon Dioxide 19 mmol/L (22-30); Chloride 110 mmol/L (98-107); Estimated CRCL calculation 59 ml/min; Estimated Glomerular Filt Rate > 60; Glucose 100 mg/dL (65-110); Phosphorus 2.2 mg/dL (2.5-4.5); Sodium 133 mmol/L (137-145)
[2021-08-06 07:57] VITALS: PULSE 88
[2021-08-06] MEDS: SODIUM CHLORIDE 0.9% IV 1,000 ML 125 ML IV CONT (07:57)
[2021-08-06] MEDS: METOPROLOL TARTRATE 50 MG TAB 100 MG PO (07:57)
[2021-08-06] MEDS: ATORVASTATIN 40 MG TABLET 80 MG PO (07:57)
[2021-08-06] MEDS: CHOLECALCIFEROL 1,000 UNITS TABLET 2000 UNITS PO (07:57)
[2021-08-06] MEDS: amLODIPine BESYLATE 5 MG TABLET PO (07:58)
[2021-08-06] MEDS: FINASTERIDE 5 MG TABLET PO (07:58)
[2021-08-06 08:00] VITALS: PULSE 77
--- NOTE | 2021-08-06 11:00 | WPDUROPN2 ---
Progress Note: A&P Assessment and Plan (1) Obstruction, uropathy: Code(s): N13.9 - Obstructive and reflux uropathy, unspecified Status: Acute (2) Benign prostatic hyperplasia: Code(s): N40.0 - Benign prostatic hyperplasia without lower urinary tract symptoms Status: Acute (3) Acute hyperkalemia: Code(s): E87.5 - Hyperkalemia Status: Acute Additional Plan 1. Maintain Ruiz at discharge, follow up with Dr. Woodward to arrange trial of void. 2. Continue flomax. will sign off, please call with questions or concerns. Subjective Subjective Date/Time Seen: 08/06/21 11:00 Interval history: NAEO, patient denies complaint, BMP demonstrates resolution of azotemia. Exam Narrative: NAD, A&Ox3 RRR eWOB S/NT/ND Ruiz draining clear yellow urine Extremities no c/c/e Neuro nonfocal Psych normal affect. Objective Data Vital Signs Vital Signs: Vital Signs - 24 hr 08/05/21 12:00 08/05/21 16:00 08/05/21 17:02 Temperature 98.5 F 98.1 F Pulse Rate 84 85 76 Respiratory Rate 16 16 Blood Pressure 156/68 H 157/68 H Pulse Oximetry 96 98 08/05/21 20:00 08/05/21 20:17 08/05/21 20:54 Temperature 99 F Pulse Rate 77 79 74 Respiratory Rate 18 Blood Pressure 162/67 H Pulse Oximetry 97 08/06/21 00:00 08/06/21 04:00 08/06/21 05:17 Temperature 97.3 F L 98.3 F Pulse Rate 72 73 75 Respiratory Rate 18 18 Blood Pressure 164/82 H 135/54 L Pulse Oximetry 97 97 08/06/21 07:57 08/06/21 08:00 Temperature Pulse Rate 88 77 Respiratory Rate Blood Pressure Pulse Oximetry Intake/Output Intake/Output: Intake & Output 08/03/21 08/04/21 08/05/21 08/06/21 23:59 23:59 23:59 23:59 Intake Total 1290 4820 2170 Output Total 2603 8361 9444 Balance -7030 8533 -412 Meds/Results Medications: Active Medications Generic Name Dose Route Start Last Admin Trade Name Freq PRN Reason Stop Dose Admin Amlodipine Besylate 5 mg 08/05/21 09:00 08/06/21 07:58 Amlodipine Besylate 5 Mg Tablet PO 5 mg DAILY OLENA Administration Atorvastatin Calcium 80 mg 08/05/21 09:00 08/06/21 07:57 Atorvastatin 40 Mg Tablet PO 80 mg DAILY OLENA Administration Finasteride 5 mg 08/05/21 09:00 08/06/21 07:58 Finasteride 5 Mg Tablet PO 5 mg QAM OLENA Administration Metoprolol Tartrate 100 mg 08/04/21 22:35 08/06/21 07:57 Metoprolol Tartrate 50 Mg Tab PO 100 mg Q12HR OLENA Administration Ondansetron HCl 4 mg 08/04/21 15:18 Ondansetron Inj 4 Mg/2 Ml Vial IV PUSH Q4H PRN Nausea Tamsulosin HCl 0.4 mg 08/04/21 21:00 08/05/21 20:53 Tamsulosin Hcl 0.4 Mg Capsule PO 0.4 mg BEDTIME OLENA Administration Vitamin D 2,000 units 08/05/21 09:00 08/06/21 07:57 Cholecalciferol 1,000 Units Tablet PO 2,000 units DAILY OLENA Administration Radiology Results: ITS Impressions Abdomen/Pelvis CT 08/04/21 14:59 IMPRESSION: 1. Mild bilateral hydronephrosis and hydroureter. 2. Moderately enlarged prostate. 3. Left inguinal hernia containing fat. 4. Diffuse hepatic steatosis. Renal Ultrasound 08/05/21 13:47 IMPRESSION: 1. Normal kidneys without hydronephrosis. 2. Prostatomegaly. Labs Labs: Laboratory Results - last 24 hr 08/05/21 08/05/21 08/05/21 11:28 16:33 16:35 WBC RBC Hgb Hct MCV MCH MCHC RDW Plt Count MPV Sodium Potassium 5.2 H Chloride Carbon Dioxide Anion Gap BUN Creatinine Estim Creat Clear Calc Estimated GFR Glucose POC Capillary Glucose 163 H 91 Hemoglobin A1c Calcium Phosphorus Albumin 08/06/21 08/06/21 08/06/21 05:49 05:49 05:49 WBC 8.5 RBC 4.57 L Hgb 12.9 L Hct 40.9 L MCV 89.5 D MCH 28.2 MCHC 31.5 L RDW 14.1 Plt Count 248 MPV 9.2 Sodium 133 L Potassium 5.0 Chloride 110 H Carbon Dioxide 19 L Anion Gap 4 L BUN 14 D Creatinine 1.00 D
[2021-08-06 12:00] VITALS: PULSE 63
--- NOTE | 2021-08-06 12:26 | PM.PNNEP ---
Progress Note: A&P Additional Plan 1. Kwaku has acute kidney injury. His BUN was 113 and his creatinine was 17.4. now his creatinine is normal. Looks like he has a full recovery from his obstructive uropathy. 2. The patient has hyperkalemia. Potassium okay at 5.0 now. 3. The patient has a low bicarbonate. His anion gap is normal. This is most likely due to the renal failure. CO2 is still low. Will give bicarbonate tabs. 4. Sodium level is a little bit low. This is also most likely due to the renal failure. Sodium level is stable. 5. The patient has anemia. Hemoglobin is only mildly low. 6. Hypertension his blood pressure has been borderline high. Blood pressure seems to have improved with relief of obstruction. 7. Patient has BPH. He is on tamsulosin and Urology is following. Subjective Date/time seen: 08/06/21 12:26 Interval history: Kwaku feels better today. He is eager for discharge. No chest pain or shortness of breath Review of Systems Cardiovascular: Cardiovascular: Reports no additional cardiovascular complaints Respiratory: Respiratory: Reports no additional respiratory complaints Gastrointestinal: Gastrointestinal: Reports no additional gastrointestinal complaints Genitourinary: Genitourinary: Reports no additional male genitourinary complaints Exam Narrative: WDWN in NAD skin no rash head ncat lungs clear cor reg no rub abd BS+ nontender and soft ext no edema. Objective Data Vital Signs Vital Signs: Vital Signs - 24 hr 08/05/21 16:00 08/05/21 17:02 08/05/21 20:00 Temperature 36.7 C Pulse Rate 85 76 77 Respiratory Rate 16 Blood Pressure 157/68 H Pulse Oximetry 98 08/05/21 20:17 08/05/21 20:54 08/06/21 00:00 Temperature 37.2 C 36.3 C L Pulse Rate 79 74 72 Respiratory Rate 18 18 Blood Pressure 162/67 H 164/82 H Pulse Oximetry 97 97 08/06/21 04:00 08/06/21 05:17 08/06/21 07:57 Temperature 36.8 C Pulse Rate 73 75 88 Respiratory Rate 18 Blood Pressure 135/54 L Pulse Oximetry 97 08/06/21 08:00 Temperature Pulse Rate 77 Respiratory Rate Blood Pressure Pulse Oximetry Intake/Output Intake/Output: Intake & Output 08/03/21 08/04/21 08/05/21 05/22/22 23:59 23:59 23:59 23:59 Intake Total 1290 0414 0450 Output Total 8387 1006 9483 Balance -7039 2758 -132 Meds/Results Medications: Active Medications Generic Name Dose Route Start Last Admin Trade Name Freq PRN Reason Stop Dose Admin Amlodipine Besylate 5 mg 08/05/21 09:00 08/06/21 07:58 Amlodipine Besylate 5 Mg Tablet PO 5 mg DAILY OLENA Administration Atorvastatin Calcium 80 mg 08/05/21 09:00 08/06/21 07:57 Atorvastatin 40 Mg Tablet PO 80 mg DAILY OLENA Administration Finasteride 5 mg 08/05/21 09:00 08/06/21 07:58 Finasteride 5 Mg Tablet PO 5 mg QAM OLENA Administration Metoprolol Tartrate 100 mg 08/04/21 22:35 08/06/21 07:57 Metoprolol Tartrate 50 Mg Tab PO 100 mg Q12HR OLENA Administration Ondansetron HCl 4 mg 08/04/21 15:18 Ondansetron Inj 4 Mg/2 Ml Vial IV PUSH Q4H PRN Nausea Tamsulosin HCl 0.4 mg 08/04/21 21:00 08/05/21 20:53 Tamsulosin Hcl 0.4 Mg Capsule PO 0.4 mg BEDTIME OLENA Administration Vitamin D 2,000 units 08/05/21 09:00 08/06/21 07:57 Cholecalciferol 1,000 Units Tablet PO 2,000 units DAILY OLENA Administration Radiology Results: ITS Impressions Abdomen/Pelvis CT 08/04/21 14:59 IMPRESSION: 1. Mild bilateral hydronephrosis and hydroureter. 2. Moderately enlarged prostate. 3. Left inguinal hernia containing fat. 4. Diffuse hepatic steatosis. Renal Ultrasound 08/05/21 13:47 IMPRESSION: 1. Normal kidneys without hydronephrosis. 2. Prostatomegaly. Labs Labs: Laboratory Results - last 24 hr 08/05/21 08/05/21 08/05/21 11:28 16:33 16:35 WBC RBC Hgb Hct MCV MCH MCHC RDW Plt Coun
--- NOTE | 2021-08-06 13:29 | PM.DS ---
DS: Admitting Diagnosis Discharge Date 08/06/2021 Admitting Diagnosis urinary retention DS: Discharge Diagnosis Discharge Diagnosis (1) Acute kidney failure: Code(s): N17.9 - Acute kidney failure, unspecified Status: Acute Assessment and Plan: Presumably due to urinary retention from bladder outlet obstruction; he does not appear dehydrated. He has not had labs done at this facility for several years but his creatinine was noted to be normal in 2019. Records requested from the [place] for comparison. Renal ultrasound has been ordered and is pending. Creatinine is already improving with Ruiz catheter placement. 08/05/2021 Interval history: patient with a urinary retention and presented emergency department with BUN and creatinine of 113 and 17.40 respectively, sodium 126, potassium 7.9, Ruiz was placed and 1 L of urine was drained was seen by urologist started the patient on Flomax and finasteride continued Ruiz, continue to have urine output, and has BUN and creatinine is improving and today BUN is 46 and creatinine is 3.1 compared to BUN of 113 and serum creatinine of 17.4, patient states is feeling much better denies any abdominal pain nausea or vomiting fever or chills, continue present management and reassess tomorrow further recommendation to follow. (2) Urinary retention: Code(s): R33.9 - Retention of urine, unspecified Status: Acute Assessment and Plan: Ruiz catheter yielded over 1000 mL upon initial insertion. Started on combination therapy with tamsulosin and finasteride per Dr. Woodward. (3) Hyperkalemia: Code(s): E87.5 - Hyperkalemia Status: Acute Assessment and Plan: Secondary to acute kidney failure. Potassium has normalized with appropriate treatment. (4) Hypertension: Code(s): I10 - Essential (primary) hypertension Status: Acute Assessment and Plan: Blood pressures were reviewed and they are stable. Monitor closely as lisinopril is on hold given acute kidney injury. (5) Benign prostatic hyperplasia: Code(s): N40.0 - Benign prostatic hyperplasia without lower urinary tract symptoms Status: Acute Assessment and Plan: Starting on combination therapy per Dr. Woodward as detailed above. (6) Acute hyperkalemia: Code(s): E87.5 - Hyperkalemia Status: Acute DS: Summary Hospital Course Reason for hospitalization: Chief Complaint: Unable to urinate. Narrative: This is a pleasant 75-year-old male with benign prostatic hyperplasia, coronary artery disease, hypertension, and hyperlipidemia who presented to the ER from home with reports of not being able to urinate since Saturday. Over the last 6 months or so he has noticed some difficulties urinating, more specifically he has had problems starting his stream and he has noticed that his stream is less forceful. The symptoms have been much worse over the past 2 weeks to the point where he reportedly has not urinated much in the last 7 days. In fact he was seen in the emergency department over the weekend for what he thought was constipation at which time he was started on MiraLax after a KUB showed no significant constipation. The last several days he has noticed that his abdomen has become increasingly distended with nausea and weakness. Vital signs were stable on arrival to the ER today. Labs were remarkable for a BUN and creatinine of 113 and 17.40 respectively, sodium 126, potassium 7.9, chloride 96, carbon dioxide 10, anion gap 20. A Ruiz catheter was placed easily and according to the chart he has had 8375 mL out at the time of this dictation. His chemistries were repeated this evening with normalization of his potassium and improvement in his BUN and creatinine. At the time my evaluation the patient has no complaints and is feeling better. He was previously on tamsulosin but he stop taking that 6 months or so ago ?because it was not doing anything.? Hospital Course:
== END 2021-08-06 14:15 | disposition home or self-care (01) | DRG 683 ==
LOC: ANHED 13:23 → ANHICU 18:03 → ANHIMU 22:10 → ANH3MED 08-06 13:22 → ANHICU 08-09 10:25 → ANHIMU 08-09 10:25
PROVIDERS: Emergency Medicine; Internal Medicine Nephrology; Physician Assistant; Admitting Provider Internal Medicine; Emergency Provider General Practice; PCP Physician Assistant; Visit Provider Family Medicine
DX: N17.9 Acute kidney failure, unspecified (principal); N13.8 Other obstructive and reflux uropathy; N40.1 Benign prostatic hyperplasia with lower urinary tract symptoms; R33.8 Other retention of urine; Z20.822 Contact with and (suspected) exposure to COVID-19; E87.5 Hyperkalemia; I10 Essential (primary) hypertension; I25.10 Atherosclerotic heart disease of native coronary artery without angina pectoris; E78.5 Hyperlipidemia, unspecified; Z79.82 Long term (current) use of aspirin; Z95.1 Presence of aortocoronary bypass graft; Z98.42 Cataract extraction status, left eye; Z98.41 Cataract extraction status, right eye; Z87.891 Personal history of nicotine dependence
CPT/HCPCS: 36415; 36600; 51701; 51702; 74176; 76775; 80048; 80053; 80069; 81001; 82375; 82805; 82948; 83036; 83050; 83690; 83735; 84100; 84132; 85025; 85027; 93005; 94640; 96361; 96374; 96375; 99285; A9270; C9803; J0610; J0692; J1815; J7030; U0003; U0005

== ENCOUNTER 2021-08-11 10:54 | Outpatient (CLI) | payer MEDICARE, OTHER, SELFPAY ==
[2021-08-11 12:12] LABS: Anion Gap 4 mmol/L (8-16); Blood Urea Nitrogen 17 mg/dL (9-20); Calcium 8.3 mg/dL (8.4-10.2); Carbon Dioxide 23 mmol/L (22-30); Chloride 103 mmol/L (98-107); Estimated Glomerular Filt Rate > 60; Glucose 93 mg/dL (65-110); Potassium 4.8 mmol/L (3.4-5.0); Sodium 130 mmol/L (137-145)
== END 2021-08-11 10:55 | disposition home or self-care (01) ==
LOC: ANHLAB 10:57
PROVIDERS: PCP Physician Assistant; Referring Provider Urology; Visit Provider Family Medicine
DX: E87.5 Hyperkalemia (principal)
CPT/HCPCS: 36415; 80048

== ENCOUNTER 2021-08-19 01:01 | Emergency (ER) | payer MEDICARE, OTHER, SELFPAY ==
--- NOTE | ~2021-08-19 | CT_ITS ---
EXAMINATION: CT abdomen pelvis wo con DATE: 08/19/2021 03:19 INDICATION: Left flank pain TECHNIQUE: Computed tomography (CT) of the abdomen and pelvis was performed without intravenous contr ast. The dose-length product (DLP) was 753.67 mGy-cm. Automated exposure control and iterative recons truction technique were employed. COMPARISON: 08/04/2021 FINDINGS: Minimal dependent atelectasis is present in the lung bases. The heart size is normal. The l iver, spleen, pancreas, gallbladder, and adrenal glands are normal. Previously described right hydron ephrosis has resolved. There is moderate left hydronephrosis with interval worsening continuing to th e level of the urinary bladder. No obstructing stone is identified. The bladder is decompressed by Fo brenda catheter. A large left inguinal hernia is present which now contains a portion of the nonobstruct ed sigmoid colon. No pathologically enlarged abdominal or pelvic lymph nodes are identified. There is no free intraperitoneal gas or evidence of bowel obstruction. There is calcified atherosclerosis of the aorta and many of the other arteries. There is severe lumbar spondylosis. IMPRESSION: 1. Resolved right hydronephrosis and worsening left hydroureteronephrosis. No obstructing stone ident ified however underlying mass is not excluded. 2. Large left inguinal hernia containing a portion of the nonobstructed sigmoid colon. Reviewed, dictated and finalized at location A. IMPRESSION: 1. Resolved right hydronephrosis and worsening left hydroureteronephrosis. No o bstructing stone identified however underlying mass is not excluded. 2. Large left inguinal hernia containing a portion of the nonobstructed sigmoid colon.
[2021-08-19 01:06] VITALS: BP 144/67; PULSE 89; RESP 18; TEMP 36.4; O2SAT 99
[2021-08-19 02:03] LABS: Basophils Absolute Auto 0.1 K/mm3 (0.0-0.1); Basophils Percent Auto 0.4 % (0.2-1.2); Eosinophils Absolute Auto 0.3 K/mm3 (0-0.3); Eosinophils Percent Auto 2.3 % (0-4.4); Hematocrit 42.5 % (42.0-52.0); Hemoglobin 14.1 g/dL (14.0-18.0); Immature Granulocyte Absolute 0.09 K/mm3 (0.00-0.031); Immature Granulocyte Percent A 0.8 % (0-0.5); Lymphocytes Absolute Auto 1.74 K/mm3 (0.9-3.2); Mean Corpuscular HGB Conc 33.2 g/dl (32-36); Mean Corpuscular Hemoglobin 28.3 pg (26-34); Mean Corpuscular Volume 85.3 fl (80-100); Mean Platelet Volume 9.1 fl (7.4-10.4); Monocytes Absolute Auto 0.8 K/mm3 (0.1-0.6); Neutrophils Absolute Auto 8.6 K/mm3 (1.3-6.7); Neutrophils Percent Auto 74.5 % (45.5-73.1); Platelet Count Result 291 k/mm3 (150-375); Red Blood Count 4.98 M/mm3 (4.6-6.20); Red Cell Distribution Width 13.4 % (11.5-14.5); White Blood Count 11.6 K/mm3 (4.5-10.0)
[2021-08-19 02:15] LABS: Lipase 38 U/L (23-300)
--- NOTE | 2021-08-19 02:16 | ED.GENADULT ---
HPI - General Adult General Chief complaint: Urogenital-Male Stated complaint: flank pain, vomiting Time Seen by Provider: 08/19/21 01:31 Source: patient Mode of arrival: ambulatory Limitations: no limitations History of Present Illness HPI narrative: This is a 75 year old male with history of enlarged prostate with urination retention, FORTUNATO who presents for evaluation of left flank pain. Patient was admitted to hospital on 08/04/21 with acute kidney injury due to urinary obstruction due to enlarged prostate. He was discharged home on 08/07/21 with paulino catheter in place. He states he developed left flank pain this evening. His pain has been constant. He states his pain was severe at onset, but it has improved. He states his paulino catheter is draining currently. He denies fever, chills, nasuea, vomiting or hematuria. He rates pain as 7/10. His pain is worsen with movement. His pain does not radiate. Related Data Home Medications Medication Instructions Recorded Confirmed amlodipine 5 mg tablet 5 mg PO DAILY 01/23/19 08/04/21 aspirin 81 mg tablet,delayed 81 mg PO DAILY 01/23/19 08/04/21 release (Adult Aspirin Regimen) cholecalciferol (vitamin D3) 50 2,000 unit PO DAILY 01/23/19 08/04/21 mcg (2,000 unit) capsule lisinopril 40 mg tablet 40 mg PO DAILY 01/23/19 08/04/21 metoprolol tartrate 100 mg tablet 100 mg PO Q12H 01/23/19 08/04/21 atorvastatin 80 mg tablet 80 mg PO DAILY 02/18/19 08/04/21 Allergies Allergy/AdvReac Type Severity Reaction Status Date / Time No Known Allergies Allergy Verified 08/04/21 13:07 Review of Systems Review of Systems: All systems reviewed & are unremarkable except as noted in HPI and below Constitutional: Constitutional: Denies chills and Denies fever(s) Respiratory: Respiratory: Denies chest congestion Gastrointestinal: Gastrointestinal: Denies abdominal pain, Denies heartburn, Denies diarrhea and Denies nausea Genitourinary: Genitourinary: Denies hematuria and Denies testicular pain Musculoskeletal: Musculoskeletal: Reports back pain Neurologic: Denies dizziness PMFSH Past Medical History Medical History Benign prostatic hyperplasia Coronary artery disease Hyperlipidemia Hypertension Surgical History Surgical History History of bilateral cataract extraction History of coronary artery bypass graft x 2 (2002) Family History Family History Other Asthma Family history of cardiovascular disease Family history of liver disease Family history of malignant neoplasm of breast in first degree relative Social History Social History Social History: Surrogate decision-maker: Nikolai Saldivar (son) or Nazia Paul (daughter). CODE STATUS: Full code. Smoking status: Former smoker Second hand tobacco smoke exposure: No Alcohol intake: never Substance use: never Spiritual care concerns: No Exam Narrative: GENERAL: Well-appearing, well-nourished, and in no acute distress. HEAD: Normocephalic, atraumatic EYES: PERRLA and EOMI, conjunctiva clear without discharge THROAT:Mucous membranes moist, Oropharynx normal without erythema, exudate, peritonsillar swelling or fluctuance NECK: Supple, without lymphadenopathy or mass RESPIRATORY: No respiratory distress, Airway patent, Respirations non-labored, Clear to auscultation without rales, rhonchi or wheeze HEART: Regular rate and rhythm. No murmur heard. Normal peripheral pulses. ABDOMEN: Soft, nontender, nondistended, normal active bowel sounds. No masses. No rebound or guarding, No organomegaly. EXTREMITIES: No edema, normal strength with full range of motion. SKIN: Warm, dry, normal color without rash NEURO: Alert and oriented x3. CN 2-12 grossly intact. No focal deficits. PSYCH: Normal mood an
[2021-08-19 02:52] LABS: Appearance Urine Clear (Clear); Bilirubin Urine Negative (Negative); Blood Urine 3+ (Negative); Color Urine Yellow (Yellow); Glucose Urine UA Negative (Negative); Ketones Urine Negative (Negative); Leukocyte Esterase Ur 1+ LEU/UL (Negative); Nitrate Urine Positive (Negative); Protein Urine 3+ mg/dL (Negative); Specific Grav Ur 1.025 (1.001-1.035); Urobilinogen Urine 0.2 mg/dL (<2.0)
[2021-08-19 03:02] LABS: Alanine Aminotransferase 29 U/L (6-50); Albumin Level 3.3 g/dL (3.5-5.1); Alkaline Phosphatase 139 U/L (38-126); Anion Gap 7 mmol/L (8-16); Aspartate Amino Transferase 30 U/L (17-59); Bilirubin,Total 0.6 mg/dL (0.2-1.3); Blood Urea Nitrogen 18 mg/dL (9-20); Carbon Dioxide 21 mmol/L (22-30); Chloride 103 mmol/L (98-107); Estimated CRCL calculation 63 ml/min; Estimated Glomerular Filt Rate > 60; Glucose 164 mg/dL (65-110); Sodium 131 mmol/L (137-145)
[2021-08-19 03:06] LABS: RBC Urine >75 /hpf (0-2); WBC Clumps Urine Present /HPF; WBC Urine >75 /hpf
[2021-08-19 03:07] LABS: Add Urine Microscopic? YES
[2021-08-19 05:35] VITALS: BP 105/60; PULSE 85; RESP 18; O2SAT 95
== END 2021-08-19 05:36 | disposition home or self-care (01) ==
PROVIDERS: Emergency Provider General Practice; PCP Physician Assistant
DX: N12 Tubulo-interstitial nephritis, not specified as acute or chronic (principal); K40.90 Unilateral inguinal hernia, without obstruction or gangrene, not specified as recurrent; E78.5 Hyperlipidemia, unspecified; I10 Essential (primary) hypertension; I25.10 Atherosclerotic heart disease of native coronary artery without angina pectoris; Z98.42 Cataract extraction status, left eye; Z98.41 Cataract extraction status, right eye; Z95.1 Presence of aortocoronary bypass graft; Z87.891 Personal history of nicotine dependence; Z79.82 Long term (current) use of aspirin
CPT/HCPCS: 36415; 74176; 80053; 81001; 83690; 85025; 87077; 87086; 87186; 96365; 96368; 99284; J0131; J0696

== ENCOUNTER 2021-10-05 01:18 | Day surgery (SDC) | payer MEDICARE, OTHER, SELFPAY ==
--- NOTE | 2021-09-27 15:00 | PC.NURSE ---
Report to the Outpatient Waiting Room, entrance under the green pavilion located off [facility], at time _1000 on date __10/05/21 . OR Time: 1200 . - You and your visitor will be asked a series of questions to screen for COVID 19 for your protection. - Only one visitor is allowed at this time. - The patient visitor is requested to leave or wait in car when not with patient. - A mask is required within the hospital. Patients may have clear liquids (water, carbonated beverages, clear teas, apple juice) until 3 hours prior to surgery with a maximum of 20 ounces. - No food from midnight until time of surgery - Infants may have breast milk until 4 hours before surgery, infant formula 6 hours prior to surgery. - Children will be allowed to drink immediately following surgery. If applicable, please bring a bottle or sippy cup to assist with drinking. Juice, water, soda, and popsicles are readily available. For infants on formula, please bring formula the day of surgery. Pacifiers are allowed. Take the following medications with a SIP of water the morning of surgery: __AMLODIPINE,METOPROLOL Medications to discontinue per physician ASPIRIN PER DR ENGLAND_. ALL VITAMINS AND SUPPLEMENTS 3 DAYS PRE OP Date to take last dose_10/01/21 Please no make-up, nail lao, hairspray, perfume, deodorant, or body powder the day of surgery. No jewelry (including any body piercings) or valuables the day of surgery, leave them at home. Please take a shower or bath the night before, or the morning of, surgery with an antibacterial soap. Wear comfortable, loose fitting clothing. Children are encouraged to wear pajamas. - Jewelry must be removed prior to entering the operating room. Rings and piercings that are not removed may be cut off. - The hospital will not accept responsibility for valuables. - Please leave all valuables, including medications, at home the day of surgery. If you are going home after surgery, a licensed hazardous materials tanker driver must drive you home. - NO public transportation without another adult. - We recommend that an adult stay with you for 24 hours following discharge. - We also recommend that you do not drive, make important decision, drink alcoholic beverages, or take any drugs that were not prescribed by your health care provider for at least 24 hours after your discharge time. For Pediatric surgeries, we recommend two adults accompany the child home (only one inside the building at this time). Follow any additional instructions given to you from your surgeon. If you or anyone in your household have experienced Covid symptoms in the past week, please notify your surgeon or the nurse liaison at the phone number below for possible testing. Telephone instructions given to ___PATIENT and asked if any additional questions and then verbalized understanding. Patient advised to call surgeon office or pre surgery nurse liaison [phone] if any additional questions.
[2021-09-27 15:07] VITALS: BMI 29.5
--- NOTE | 2021-10-02 07:11 | PM.IMHP ---
H&P: HPI History of Present Illness Date/Time: 10/02/21 07:11 Chief Complaint: Urinary retention Narrative: 75-year-old gentleman who I became from a with any presented to the emergency department with profound urinary retention and a serum creatinine of 17. Obviously, at that time, urethral catheter was placed in his renal function improved dramatically. 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 We have discussed therapeutic options including and chronic indwelling catheter, intermittent catheterization and suprapubic catheters. he is aware that the planned a TURP procedure today likely will not lead to spontaneously voiding but will assist with intermittent self catheterization. He is aware the risk of this procedure including, but not limited to, adverse cardiopulmonary events, persistent urinary retention and hematuria. Review of Systems Cardiovascular: Cardiovascular: Denies chest pain, Denies lightheadedness, Denies palpitations and Denies dyspnea Respiratory: Respiratory: Denies dyspnea Gastrointestinal: Gastrointestinal: Denies diarrhea, Denies nausea and Denies vomiting Genitourinary: Genitourinary: Denies hematuria and Denies dysuria Endocrine: Endocrine: Denies palpitations [facility] Past Medical History Medical History Benign prostatic hyperplasia Coronary artery disease Hyperlipidemia Hypertension Surgical History Surgical History History of bilateral cataract extraction History of coronary artery bypass graft x 2 (2002) Family History Family History Other Asthma Family history of cardiovascular disease Family history of liver disease Family history of malignant neoplasm of breast in first degree relative Social History Social History Social History: Surrogate decision-maker: Nikolai Saldivar (son) or Nazia Paul (daughter). CODE STATUS: Full code. Smoking packs per day: 0.5 Smoking cigarettes per day: 10.0 Years smoked: 39 Smoking pack-years: 19.50 Smoking status: Former smoker Tobacco type: cigarettes Second hand tobacco smoke exposure: No Smoking end date: 03/18/02 Alcohol intake: never Substance use: never Living arrangements: with family Spiritual care concerns: No Meds Home Medications and Allergies Home Medications Medication Instructions Recorded Confirmed Type amlodipine 5 mg tablet 5 mg PO DAILY 01/23/19 09/27/21 History aspirin 81 mg tablet,delayed 81 mg PO DAILY 01/23/19 09/27/21 History release (Adult Aspirin Regimen) cholecalciferol (vitamin D3) 50 2,000 unit PO DAILY 01/23/19 09/27/21 History mcg (2,000 unit) capsule lisinopril 40 mg tablet 40 mg PO DAILY 01/23/19 09/27/21 History metoprolol tartrate 100 mg tablet 100 mg PO Q12H 01/23/19 09/27/21 History atorvastatin 80 mg tablet 80 mg PO DAILY 02/18/19 09/27/21 History finasteride 5 mg tablet (Proscar) 5 mg PO QAM #30 tabs 08/06/21 09/27/21 Rx tamsulosin 0.4 mg capsule 0.4 mg PO BEDTIME #30 caps 08/06/21 09/27/21 Rx Allergies Allergy/AdvReac Type Severity Reaction Status Date / Time No Known Allergies Allergy Verified 09/27/21 14:49 Exam Const: General: no acute distress Resp: Effort & Inspection: normal respiratory effort GI: Inspection: non-distended GI Palp: No abdominal tenderness and No Guarding due to palpation present (GI) Auscultation: normal bowel sounds Assessment and Plan Assessment and plan (1) BPH loc w urin obs/LUTS: Code(s): N40.1 - Benign prostatic hyperplasia with lower urinary tract symptoms Status: Acute Assessment and Plan: TURP
[2021-10-05] VITALS (13 sets, daily range): BP systolic 100–142; BP diastolic 42–71; PULSE 59–73; RESP 10–18; TEMP 36.1–36.7; O2SAT 93–97
--- NOTE | 2021-10-05 06:41 | WPDHPUPDATE1 ---
History and Physical Update Update Date/Time: 10/05/21 06:41 History and Physical has been reviewed, including an updated exam of the patient. There are NO changes in the patient's condition. Risks, benefits, and alternatives have been discussed and questions answered. Patient agrees to proceed with procedure.
[2021-10-05] MEDS: LACTATED RINGERS 1,000 ML 30 ML IV CONT ×2 (10:13→12:03)
--- NOTE | 2021-10-05 10:32 | WPDANESEPPF ---
Anes - Initial Pre Proc Eval Procedure: Operation Date: 10/05/21 11:45 Proposed Procedures p Trans Urethral Resection Prostate - Rodri Woodward MD Date/Time: 10/05/21 10:32 Surgeon: Rodri Woodward MD Pre Op Diagnosis: Urinary Retention Patient Data Age: 75 Gender: M Height: 1.66 m Weight: 81.15 kg Last Vital Signs Temp 36.7 C 10/05/21 09:54 Pulse 73 10/05/21 09:54 Resp 18 10/05/21 09:54 BP 132/65 10/05/21 09:54 Pulse Ox 97 10/05/21 09:54 O2 Del Method Room Air 10/05/21 09:54 Allergies Allergy/AdvReac Type Severity Reaction Status Date / Time No Known Allergies Allergy Verified 10/05/21 10:20 Home Medications Medication Instructions Recorded Confirmed Type amlodipine 5 mg tablet 5 mg PO DAILY 01/23/19 10/05/21 History aspirin 81 mg tablet,delayed 81 mg PO DAILY 01/23/19 10/05/21 History release (Adult Aspirin Regimen) cholecalciferol (vitamin D3) 50 2,000 unit PO DAILY 01/23/19 10/05/21 History mcg (2,000 unit) capsule lisinopril 40 mg tablet 40 mg PO DAILY 01/23/19 10/05/21 History metoprolol tartrate 100 mg tablet 100 mg PO Q12H 01/23/19 10/05/21 History atorvastatin 80 mg tablet 80 mg PO DAILY 02/18/19 10/05/21 History finasteride 5 mg tablet (Proscar) 5 mg PO QAM #30 tabs 08/06/21 10/05/21 Rx tamsulosin 0.4 mg capsule 0.4 mg PO BEDTIME #30 caps 08/06/21 10/05/21 Rx Patient hx anesthesia problems: none Family hx anesthesia problems: none Results Review: All pre-operative results and documents have been reviewed as part of the pre-operative evaluation. [facility] Past Medical History Medical History Benign prostatic hyperplasia Coronary artery disease Hyperlipidemia Hypertension Surgical History Surgical History History of bilateral cataract extraction History of coronary artery bypass graft x 2 (2002) Family History Family History Other Asthma Family history of cardiovascular disease Family history of liver disease Family history of malignant neoplasm of breast in first degree relative Social History Social History Social History: Surrogate decision-maker: Nikolai Saldivar (son) or Nazia Paul (daughter). CODE STATUS: Full code. Smoking packs per day: 0.5 Smoking cigarettes per day: 10.0 Years smoked: 39 Smoking pack-years: 19.50 Smoking status: Former smoker Tobacco type: cigarettes Second hand tobacco smoke exposure: No Smoking end date: 03/18/02 Alcohol intake: never Substance use: never Living arrangements: with family Spiritual care concerns: No Anes - Eval Final PreProcedure Day of Procedure 10/05/21 10:32 Patient weight: overweight Heart: regular rate and rhythm Lungs: clear to auscultation Airway: Mallampati scale class II Neurological: alert and oriented Last oral intake: >/= 8 hours ASA classification: III Emergent: no Anesthetic plan: proceed Anesthesia type and monitoring: general LMA and standard monitoring Results Review: All pre-operative results and documents have been reviewed as part of the pre-operative evaluation. Informed Consent: The patient's anesthetic plan and its attendant risks and benefits were discussed with the patient/family/POA. Questions were solicited and answers provided to the satisfaction of the patient/family/POA.
--- NOTE | 2021-10-05 12:08 | W.PM.PROC2 ---
Procedure Note - Detailed Date of Procedure 10/05/21 Pre-op Diagnosis Urinary retention due to BPH Post-op Diagnosis Same Procedure Performed TURP Surgeon Rodri Woodward MD Description of Procedure The patient was brought to the operative suite where he is prepped and draped in routine sterile fashion while in the dorsal lithotomy position after the uneventful induction of a general LMA anesthetic. A 29 [place] resectoscope sheath was placed into his bladder. He had no urethral strictures. The patient had bilobar hyperplasia with a small median lobe. The bladder itself was endoscopically normal, showing no mucosal hyperemia, intravesical neoplasm or foreign bodies. There was a single, orthotopic ureteral orifice bilaterally. These orifices were identified and preserved throughout the remainder of the procedure. Attention was first turned to resection of the median lobe. This resection was undertaken from the bladder neck to the verumontanum and carried out until the transverse fibers of the bladder neck were identified. The left lateral lobe was then resected starting at the 6 o'clock position, working counter clockwise to the 12 o'clock position. Again, resection was carried out from the bladder neck to the verumontanum until the capsular fibers of the prostate were identified. The right lateral lobe was resected in a similar fashion starting at the 6 o'clock position working clockwise to the 12 o'clock position and carried out until the capsular fibers of the prostate were identified. Apical tissue was then circumferentially resected. All chips were evacuated from the bladder using an Inflection evacuator. Hemostasis was obtained with electric cautery. The ureteral orifices were again inspected and found to be without injury. Estimated blood loss throughout this procedure was 75cc. The patient was taken to recovery room having tolerated this well. Estimated Blood Loss -20.0 Drains Yes Pathology Yes Complications No immediate complications Condition Stable
--- NOTE | 2021-10-05 12:13 | SUR.PHASEI ---
1207- oral airway removed
[2021-10-05] MEDS: fentaNYL CITRATE INJ (*CRX) 100 MCG/2 ML VIAL 25 MCG IV PUSH ×3 (12:19→12:25)
[2021-10-05] MEDS: ONDANSETRON INJ 4 MG/2 ML VIAL IV PUSH ×2 (12:42→14:03)
--- NOTE | 2021-10-05 13:15 | ADMGEN ---
This patient, Kwaku Saldivar, was admitted to Medical Room 244-. Patient/family oriented to hospital policies and general routines including ID bracelet, bed and alarms, visiting hours, pain management, procedures, bathroom and other care routines, personal items, smoking policy, room service/diet, and visiting hours. Information on how to activate the Rapid Response Team has been discussed. Patient/Family are encouraged to report perceived risks to care and to ask questions if they do not understand what they are told or what they should do.
[2021-10-05] MEDS: DEXTROSE 5%/LACTATED RINGERS 1,000 ML 125 ML IV CONT (14:03)
[2021-10-05] MEDS: CALCIUM CARBONATE (TUMS) 500 MG (200 MG ELEMENTAL) PO (14:39)
[2021-10-05 16:27] LABS: Glucose Point of Care 191 mg/dl (65-105)
[2021-10-05] MEDS: DOCUSATE SODIUM 100 MG CAPSULE PO (16:45)
[2021-10-05] MEDS: METOPROLOL TARTRATE 50 MG TAB 100 MG PO (21:59)
[2021-10-05] MEDS: TAMSULOSIN HCL 0.4 MG CAPSULE PO (22:00)
[2021-10-05 22:15] LABS: Glucose Point of Care 218 mg/dl (65-105)
[2021-10-06 03:25] VITALS: BP 121/57; PULSE 65; RESP 17; TEMP 36.9; O2SAT 97
[2021-10-06 05:26] LABS: Hematocrit 38.9 % (42.0-52.0); Hemoglobin 13.2 g/dL (14.0-18.0)
[2021-10-06 05:35] LABS: Anion Gap 6 mmol/L (8-16); Blood Urea Nitrogen 21 mg/dL (9-20); Calcium 8.6 mg/dL (8.4-10.2); Carbon Dioxide 23 mmol/L (22-30); Chloride 102 mmol/L (98-107); Estimated CRCL calculation 52 ml/min; Estimated Glomerular Filt Rate > 60; Glucose 99 mg/dL (65-110); Potassium 4.3 mmol/L (3.4-5.0); Sodium 131 mmol/L (137-145)
[2021-10-06 07:43] LABS: Glucose Point of Care 117 mg/dl (65-105)
--- NOTE | 2021-10-06 07:45 | WPDUROPN2 ---
Progress Note: A&P Assessment and Plan (1) BPH loc w urin obs/LUTS: Code(s): N40.1 - Benign prostatic hyperplasia with lower urinary tract symptoms Status: Acute Assessment and Plan: Doing well POD #1 TURP Stop CBI this morning Voiding trial later today if urine remains clear off CBI Subjective Subjective Date/Time Seen: 10/06/21 07:45 Comfortable, nausea last night has resolved. No other complaints. Review of Systems Cardiovascular: Cardiovascular: Denies chest pain, Denies lightheadedness, Denies palpitations and Denies dyspnea Respiratory: Respiratory: Denies dyspnea Gastrointestinal: Gastrointestinal: Denies diarrhea, Denies nausea and Denies vomiting Genitourinary: Genitourinary: Denies hematuria and Denies dysuria Endocrine: Endocrine: Denies palpitations Exam Const: General: no acute distress Resp: Effort & Inspection: normal respiratory effort GI: Inspection: non-distended GI Palp: No abdominal tenderness and No Guarding due to palpation present (GI) Auscultation: normal bowel sounds Objective Data Vital Signs Vital Signs: Vital Signs - 24 hr 10/05/21 09:54 10/05/21 12:03 10/05/21 12:18 Temperature 98.1 F 97 F L Pulse Rate 73 69 67 Respiratory Rate 18 10 L 18 Blood Pressure 132/65 121/58 L 142/68 H Pulse Oximetry 97 97 93 Oxygen Delivery Room Air Simple Face Mask Room Air Oxygen Flow Rate 2 10/05/21 12:33 10/05/21 12:48 10/05/21 12:59 Temperature Pulse Rate 66 62 59 L Respiratory Rate 12 12 12 Blood Pressure 141/70 H 137/60 139/67 Pulse Oximetry 94 97 96 Oxygen Delivery Room Air Room Air Room Air Oxygen Flow Rate 10/05/21 13:15 10/05/21 13:25 10/05/21 13:40 Temperature 97.5 F L 97.6 F Pulse Rate 60 65 Respiratory Rate 16 16 Blood Pressure 136/71 122/68 Pulse Oximetry 97 96 Oxygen Delivery Room Air Oxygen Flow Rate 10/05/21 14:10 10/05/21 15:10 10/05/21 19:28 Temperature 96.9 F L 97.0 F L 97.8 F Pulse Rate 63 62 68 Respiratory Rate 16 16 17 Blood Pressure 121/48 L 112/53 L 105/46 L Pulse Oximetry 97 97 96 Oxygen Delivery Oxygen Flow Rate 10/05/21 21:59 10/05/21 23:35 10/06/21 03:25 Temperature 98.1 F 98.4 F Pulse Rate 68 69 65 Respiratory Rate 16 17 Blood Pressure 100/42 L 121/57 L Pulse Oximetry 95 97 Oxygen Delivery Oxygen Flow Rate Intake/Output Intake/Output: Intake & Output 10/03/21 10/04/21 10/05/21 10/06/21 23:59 23:59 23:59 23:59 Intake Total 4790 550 Output Total 4900 1800 Balance -110 -1250 Meds/Results Medications: Active Medications Generic Name Dose Route Start Last Admin Trade Name Freq PRN Reason Stop Dose Admin Hydrocodone Bitart/Acetaminophen 1 tab 10/05/21 13:07 Hydrocodone/Acetaminophen (*Crx) 5-325 Mg Tablet PO Q4H PRN Pain Rated 1-6 Amlodipine Besylate 5 mg 10/06/21 09:00 Amlodipine Besylate 5 Mg Tablet PO DAILY [facility] Atorvastatin Calcium 80 mg 10/06/21 09:00 Atorvastatin 40 Mg Tablet PO DAILY OLENA Calcium Carbonate 200 mg 10/05/21 14:33 10/05/21 14:39 Calcium Carbonate (Tums) 500 Mg (200 Mg Elemental) PO 200 mg Q6H PRN Administration Indigestion Cephalexin HCl 500 mg 10/06/21 09:00 Cephalexin 500 Mg Capsule PO QID OLENA Dextrose 12.5 gm 10/05/21 13:07 Dextrose 50% 25 Gm/50 Ml Syringe IV PUSH PRN PRN Hypoglycemia Protocol Docusate Sodium 100 mg 10/05/21 17:00 10/05/21 16:45 Docusate Sodium 100 Mg Capsule PO 100 mg BID OLENA Administration Glucagon 1 mg 10/05/21 13:07 Glucagon For Inj 1 Mg Vial IM PRN PRN Hypoglycemia Protocol Glucose 15 gm 10/05/21 13:07 Glucose Oral Gel 15 Gm Of Glucse In 37.5 Gm Tube PO PRN PRN Hypoglycemia Protocol Hyoscyamine 0.125 mg 10/05/21 13:07 Hyoscyamine Sulfate 0.125 Mg Tablet SUBLINGUAL Q6H PRN Bladder Spasm Dextrose 1,000 mls @ 100 mls/hr 10/05/21 13:07
[2021-10-06 08:00] VITALS: PULSE 72; RESP 18; O2SAT 100
[2021-10-06 10:49] VITALS: PULSE 65
[2021-10-06] MEDS: METOPROLOL TARTRATE 50 MG TAB 100 MG PO (10:49)
[2021-10-06] MEDS: CEPHALEXIN 500 MG CAPSULE PO (11:34)
[2021-10-06 11:37] LABS: Glucose Point of Care 99 mg/dl (65-105)
[2021-10-06] MEDS: DOCUSATE SODIUM 100 MG CAPSULE PO (11:39)
[2021-10-06 12:33] VITALS: BP 135/60; PULSE 72; RESP 18; TEMP 36.8; O2SAT 100
--- NOTE | 2021-10-06 13:09 | P.DS_ITS ---
DS: Admitting Diagnosis Discharge Date 10/06/2021 Admitting Diagnosis BPH DS: Summary Hospital Course Hospital Course: This patient with longstanding prostatism refractory for medical management was admitted on the morning of his planned TURP. The procedure was undertaken on that same day in an uneventful fashion. His post-operative course was, likewise, uneventful. On the evening of the procedure he was tolerating a diet. On POD#1 his urine was clear on CBI. The urine remained clear and, therefore, the catheter was removed late morning. The patient was observed for several ho urs, until he demonstrated he could void effectively without significant hematuria. He was discharged with careful instruction on limiting physical activity x2 weeks and plans to f/ in 2-3 weeks. At discharge he was comfortable and tolerating a diet. Time Spent with Patient Time attestation: Total time spent providing and/or coordinating discharge services: DS: Data Data Completed and Pending Pending studies at discharge: Pending at discharge 10/05/21 11:12 Surgical [PTH] Routine Labs on day of discharge: Labs from last 24 hours 10/06/21 10/06/21 10/06/21 11:35 07:40 04:51 Hgb Hct Sodium 131 L Potassium 4.3 Chloride 102 Carbon Dioxide 23 Anion Gap 6 L BUN 21 H Creatinine 1.00 Estim Creat Clear Calc 52 Estimated GFR > 60 Glucose 99 POC Capillary Glucose 99 117 H Calcium 8.6 10/06/21 10/05/21 10/05/21 04:51 22:06 16:23 Hgb 13.2 L Hct 38.9 L Sodium Potassium Chloride Carbon Dioxide Anion Gap BUN Creatinine Estim Creat Clear Calc Estimated GFR Glucose POC Capillary Glucose 218 H 191 H Calcium Discharge Plan Discharge Patient Disposition: Home, Self-Care Discharge Instructions: 1) Activity: No lifting/straining >15lbs. x2 weeks. 2) Diet: Resume normal pre-admission diet. 3) Follow-up: 2-3 weeks / call office for appointment ([phone]). Stand Alone Forms: General Discharge Instructions Discharge Orders: Discharge Order (Routine); Ordered 10/06/21 Ordered By: Rodri Woodward Discharge Medications: New hydrocodone-acetaminophen 5-325 mg tablet 1 - 2 tablet PO Q6H PRN (Reason: pain) Qty: 20 0RF ciprofloxacin HCl 500 mg tablet 500 mg PO Q12H Qty: 6 0RF docusate sodium [Colace] 100 mg capsule 100 mg PO DAILY Qty: 30 0RF Continued atorvastatin 80 mg tablet 80 mg PO DAILY lisinopril 40 mg tablet 40 mg PO DAILY Hold Instructions: until seen by primary care provider metoprolol tartrate 100 mg tablet 100 mg PO Q12H amlodipine 5 mg tablet 5 mg PO DAILY cholecalciferol (vitamin D3) 50 mcg (2,000 unit) capsule 2,000 unit PO DAILY Held aspirin [Adult Aspirin Regimen] 81 mg tablet,delayed release (DR/EC) 81 mg PO DAILY Hold Instructions: Resume on 10/11/21. Discontinued tamsulosin 0.4 mg Capsule 0.4 mg PO BEDTIME Qty: 30 0RF finasteride [Proscar] 5 mg Tablet 5 mg PO QAM Qty: 30 0RF
== END 2021-10-06 13:45 | disposition home or self-care (01) ==
LOC: ANHSURGERY 09:41 → ANH2MED 13:09
PROVIDERS: Visit Provider Urology
PROC: 0VT08ZZ Resection of Prostate, Via Natural or Artificial Opening Endoscopic (ICD-10-PCS; CPT 52601; principal; 2021-10-05 11:45)
DX: N40.1 Benign prostatic hyperplasia with lower urinary tract symptoms (principal); R33.8 Other retention of urine; I10 Essential (primary) hypertension; E78.5 Hyperlipidemia, unspecified; I25.10 Atherosclerotic heart disease of native coronary artery without angina pectoris; Z79.82 Long term (current) use of aspirin; Z79.899 Other long term (current) drug therapy; Z87.891 Personal history of nicotine dependence; Z95.1 Presence of aortocoronary bypass graft
CPT/HCPCS: 52601; 36415; 80048; 82948; 85014; 85018; 88305; A9270; C1757; J0690; J1100; J2370; J2405; J2704; J3010; J7120; J7121